=== PATIENT | female | born 2000 | race Caucasian/White ===

== ENCOUNTER 2021-06-14 07:51 | Inpatient (IN) ==
[2021-06-14] MEDS ORDERED: Naloxone 0.4 MG/ML INJ IVP PRN (07:54)
[2021-06-14] MEDS ORDERED: Famotidine 20 MG/2 ML VIAL IVP PRN (07:54)
[2021-06-14] MEDS ORDERED: *HR* Nalbuphine 10 MG/ML AMPUL IV PRN (07:54)
[2021-06-14] MEDS ORDERED: Metoclopramide 10 MG/2 ML VIAL IVP PRN (07:54)
[2021-06-14] MEDS ORDERED: miSOPROStoL 25 MCG TABLET PO PRN (07:54)
[2021-06-14] MEDS ORDERED: Azithromycin 500 MG in 0.9 % Sodium Chloride 250 ML IVPB PRN (07:54)
[2021-06-14 09:51] LABS: Influenza A PCR Negative (Negative); Influenza B PCR Negative (Negative); Resp. Syncytial Virus PCR Negative (Negative)
[2021-06-14 09:52] LABS: SARS-CoV-2 by PCR (In House) Negative (Negative)
[2021-06-14 10:18] LABS: Basophils % 0.1 %; Eosinophils % 0.3 %; Hematocrit 31.1 % (35.3-44.9); Immature Granulocytes % 0.4 % (0-4); Lymphocytes # 1.9 K/mcL (0.6-4.6); Lymphocytes % 21.3 %; Mean Corpuscular HGB Conc 32.2 g/dL (31.6-35.5); Mean Corpuscular Hemoglobin 27.2 pg (28.0-33.3); Mean Corpuscular Volume 84.5 fL (83.0-100.0); Mean Platelet Volume 11.3 fL (9.4-12.4); Monocytes # 0.7 K/mcL (0.0-1.3); Monocytes % 7.9 %; Neutrophils # 6.3 K/mcL (1.6-8.9); Platelet Count 313 K/mcL (140-400); Red Blood Count 3.68 M/mcL (3.82-4.97); Red Cell Distribution Width 13.7 % (11.5-14.5)
[2021-06-14] MEDS ORDERED: EPHEDrine 50 MG/ML VIAL IVP PRN (10:49)
[2021-06-14] MEDS ORDERED: Ropivacaine/PF 0.2% 20 ML VIAL EP ONE (10:49)
[2021-06-14] MEDS ORDERED: *HR* FentaNYL (PF) 100 MCG/2 ML VIAL EP ONE (10:49)
[2021-06-14 11:40] LABS: Amphetamine Screen,Urine Negative ng/mL (Cutoff=1000); Barbiturate Screen,Urine Negative ng/mL (Cutoff=200); Benzodiazepines Screen,Urine Negative ng/mL (Cutoff=200); Cannabinoid Screen,Urine Negative ng/mL (Cutoff = 50); Cocaine Screen,Urine Negative ng/mL (Cutoff= 300); Opiate Screen,Urine Negative ng/mL (Cutoff=300); Phencyclidine Screen,Urine Negative ng/mL (Cutoff=25)
[2021-06-14] MEDS: Ringers Solution, Lactated 1,000 ML IVC SCH ×3 (14:00→23:18)
[2021-06-14] MEDS: Epidural Premix (fent/bupiv) 110 ML EP SCH ×2 (15:12→20:38)
[2021-06-14] MEDS ORDERED: Oxytocin 30 UNIT/503 ML BAG IVC SCH (16:15)
[2021-06-14] MEDS: Oxytocin 30 UNIT/503 ML BAG IVC SCH (18:24)
[2021-06-14] MEDS: Acetaminophen 325 MG TABLET PO PRN (20:37)
[2021-06-14] MEDS ORDERED: Ropivacaine/PF 0.2% 20 ML VIAL ONE (23:45)
[2021-06-14] MEDS ORDERED: *HR* FentaNYL (PF) 100 MCG/2 ML VIAL ONE (23:45)
[2021-06-15] MEDS: Epidural Premix (fent/bupiv) 110 ML EP SCH ×2 (02:16→11:10)
[2021-06-15] MEDS: Acetaminophen 325 MG TABLET PO PRN (02:17)
[2021-06-15] MEDS ORDERED: Gentamicin 150 MG in 0.9 % Sodium Chloride 100 ML IVPB ONE (02:28)
[2021-06-15] MEDS: Ampicillin 2,000 MG in 0.9 % Sodium Chloride Mini Bag 100 ML IVPB SCH ×2 (02:54→09:13)
[2021-06-15] MEDS ORDERED: *HR* FentaNYL (PF) 100 MCG/2 ML VIAL ONE (03:46)
[2021-06-15] MEDS: Ringers Solution, Lactated 1,000 ML IVC SCH ×2 (04:13→11:11)
[2021-06-15] MEDS ORDERED: Ibuprofen 600 MG TABLET PO ONE (11:02)
[2021-06-15] MEDS: Oxytocin 30 UNIT/503 ML BAG IVC SCH (11:10)
[2021-06-15] MEDS ORDERED: Ondansetron ODT 4 MG TAB.RAPDIS SL PRN (12:22)
[2021-06-15] MEDS ORDERED: Rho Immune Globulin 1,500 UNIT SYRINGE IM PRN (12:22)
[2021-06-15] MEDS ORDERED: Lanolin 7 G OINT...G. TP PRN (12:22)
[2021-06-15] MEDS ORDERED: Measles/Mumps/Rubella Vacc 0.5 ML VIAL SQ PRN (12:22)
[2021-06-15] MEDS ORDERED: OXYTOCIN/RINGERS LACTATE 10 UNIT/166.6 ML BAG IVC ONE (12:22)
[2021-06-15] MEDS: Benzocaine/Menthol 56 GM AEROSOL SPRAY TP PRN (14:59)
[2021-06-15] MEDS: Acetaminophen 325 MG TABLET PO SCH ×2 (14:59→20:42)
[2021-06-15] MEDS ORDERED: Methylergonovine 0.2 MG/ML AMPUL IM ONE (16:15)
[2021-06-15] MEDS: Ibuprofen 600 MG TABLET PO SCH (20:42)
[2021-06-16] MEDS: Ibuprofen 600 MG TABLET PO SCH ×2 (03:20→13:46)
[2021-06-16] MEDS: Acetaminophen 325 MG TABLET PO SCH ×2 (03:21→09:18)
[2021-06-16 05:46] VITALS: BP 99/66; PULSE 100; TEMP 98.1; O2SAT 98
[2021-06-16 05:57] LABS: Basophils % 0.2 %; Eosinophils # 0.1 K/mcL (0.0-0.6); Eosinophils % 0.4 %; Hematocrit 27.3 % (35.3-44.9); Hemoglobin 8.7 g/dL (11.5-15.4); Immature Granulocytes % 0.9 % (0-4); Lymphocytes # 2.3 K/mcL (0.6-4.6); Lymphocytes % 11.5 %; Mean Corpuscular HGB Conc 31.9 g/dL (31.6-35.5); Mean Corpuscular Hemoglobin 27.2 pg (28.0-33.3); Mean Corpuscular Volume 85.3 fL (83.0-100.0); Mean Platelet Volume 11.5 fL (9.4-12.4); Monocytes # 1.4 K/mcL (0.0-1.3); Monocytes % 7.1 %; Platelet Count 287 K/mcL (140-400); Segmented Neutrophils % 79.9 %
[2021-06-16] MEDS ORDERED: Prenatal Vit/FA 1 EACH TABLET PO SCH (09:00)
[2021-06-16] MEDS: Benzocaine/Menthol 56 GM AEROSOL SPRAY TP PRN (09:19)
== END 2021-06-16 18:05 | disposition home or self-care (01) | DRG 542 ==
LOC: 1NENULAB 07:51 → 1NENUOBS 06-15 12:55
PROVIDERS: ADMIT Student in an Organized Health Care Education/Training Program; ATTEND Student in an Organized Health Care Education/Training Program